=== PATIENT | male | born 2000 | race Caucasian/White ===

== ENCOUNTER 2019-09-23 16:18 | Emergency (ER) | payer OTHER, MEDICAID ==
[~2019-09-23 16:18] MED LIST: Amoxicillin/Clavulanate K 875-125 MG Tab ONE; traMADol 50 MG Tab ONE
[2019-09-23 17:08] VITALS: BP 128/81; PULSE 85
--- NOTE | 2019-09-24 02:42 | ER ---
REASON FOR EMERGENCY ROOM VISIT: Toothache. HISTORY OF PRESENT ILLNESS: This previously healthy 18-year-old man comes in with a 2-day history of toothache on his left mandibular side. He had a mandibular molar break off several weeks ago and neglected to do anything about it. He has had a toothache for the past 2 days, but has not had any fever or chills. All day long, he has had increasing swelling involving his left cheek area. PAST MEDICAL HISTORY: Unremarkable. MEDICATIONS: None. ALLERGIES: NONE. PHYSICAL EXAMINATION: GENERAL: He is afebrile. Pulse of 85, blood pressure 128/81, respirations 18, O2 sats 99%. HEENT: Head is normocephalic. His left cheek is quite indurated and swollen, but there is no fluctuance. No palpable mass. The cheek on the left side is thickened and edematous from approximately the zygomatic area to the inferior border of the left mandibular arch. There is no cervical adenopathy. The swelling is limited to the buccal area. There is no cellulitis of the actual skin. I cannot palpate an area of fluctuance consistent with an abscess. Examination of his oral cavity, he does have a broken off second mandibular molar on the left side with the pulp cavity exposed. There is edema in the surrounding gingiva. No actual subgingival abscess can be identified. It is tender but not exquisitely so. IMPRESSION: Abscess, most likely left second mandibular molar with surrounding edema. PLAN: 1. We gave him a prescription for Augmentin 875/125, dispense #20, one p.o. b.i.d. 2. I also gave him a limited number of tramadol 50 mg, dispensed #10 one q.4 hours p.r.n. pain. 3. I emphasized no uncertain terms that he really needs to see a dentist within the next day or 2 at the most. 4. I described the risks of delay of treatment for him and that it really is imperative in my opinion. 5. I reviewed some potential complications of a nontreated dental infection they understand. 6. I also recommended some warm moist heat to the left cheek area which will promote circulation and hopefully resolution of the swelling. 7. All questions were answered. They understand and agree with this plan. RALPH/CIARA /[id number]
== END 2019-09-23 16:32 | disposition home or self-care (01) ==
LOC: LB.ED 16:18
DX: K04.7 Periapical abscess without sinus (principal)
CPT/HCPCS: 99282; A9270

== ENCOUNTER 2022-08-29 02:25 | Emergency (ER) | payer MEDICAID, OTHER ==
[2022-08-29] MEDS ORDERED: Diphtheria,Pertussis(Acell),Tetanus Vaccine 0.5 ML SDV IM ONE (02:50)
[2022-08-29] MEDS ORDERED: Cephalexin 500 MG Cap ONE (03:00)
[2022-08-29 03:30] VITALS: BP 135/78; PULSE 56
[2022-08-29] MEDS ORDERED: Lidocaine 1% 30 ML SDV INFILT ONE (05:41)
== END 2022-08-29 03:15 | disposition home or self-care (01) ==
LOC: LB.ED 02:25
DX: S61.211A Laceration without foreign body of left index finger without damage to nail, initial encounter (principal); Z23 Encounter for immunization; W26.8XXA Contact with other sharp object(s), not elsewhere classified, initial encounter; Y99.0 Civilian activity done for income or pay
CPT/HCPCS: 12001; 90471; 90715; 99282; A9270